=== PATIENT | male | born 1980 | race Two or more races ===

== ENCOUNTER → 2017-08-23 | Outpatient (CLI) | payer OTHER ==
[~2017-08-23] MED LIST: LIDOCAINE 1% 300 MG/30 ML SDV ONE
== END ==
LOC: FIMAGING 09:47
PROVIDERS: ATTEND Internal Medicine Hematology & Oncology
PROC: 0G9K3ZX Drainage of Thyroid Gland, Percutaneous Approach, Diagnostic (ICD-10-PCS; principal; 2017-08-23)
DX: C73 Malignant neoplasm of thyroid gland (principal)

== ENCOUNTER 2017-09-16 08:02 | Observation (INO) | payer BC, OTHER ==
[2017-09-16] MEDS ORDERED: ceFAZolin 2 GM/SWFI 2 GM/20 ML SYR IVP ONE ×2 (08:15→08:30)
[2017-09-16] MEDS ORDERED: LR 1,000 ML IV ONE (08:17)
[2017-09-16] MEDS ORDERED: THROMBIN (BOVINE) 5,000 UNIT VIAL TP ONE (09:44)
[2017-09-16] MEDS ORDERED: BUPIVACAINE/EPI 0.5% 30 ML SDV ONE (09:44)
[2017-09-16] MEDS ORDERED: PROPOFOL/EMULSION 500 MG/50 ML BOTTLE IV ONE ×2 (09:51→10:57)
[2017-09-16] MEDS ORDERED: fentaNYL 100 MCG/2 ML INJ ONE ×5 (09:51→13:03)
[2017-09-16] MEDS ORDERED: MIDAZOLAM 2 MG/2 ML VIAL ONE (09:51)
[2017-09-16] MEDS ORDERED: MEPERIDINE 25 MG/ML SYR IVP PRN (10:17)
[2017-09-16] MEDS ORDERED: LR 500 ML IV PRN (10:17)
[2017-09-16] MEDS ORDERED: NALOXONE HCL 0.4 MG/ML INJ IVP PRN (10:17)
[2017-09-16] MEDS ORDERED: PROMETHAZINE HCL 25 MG/ML INJ IVP PRN (10:17)
[2017-09-16] MEDS ORDERED: ONDANSETRON 4 MG/2 ML VIAL IVP PRN ×2 (10:17→12:34)
[2017-09-16] MEDS ORDERED: ALBUTEROL 3 ML DEYVIAL IH PRN (10:17)
[2017-09-16] MEDS ORDERED: DEXAMETHASONE 4 MG/ML VIAL IVP PRN (10:17)
[2017-09-16] MEDS ORDERED: METOCLOPRAMIDE 10 MG/2 ML VIAL IVP PRN (10:17)
[2017-09-16] MEDS ORDERED: DIAZEPAM 5 MG/ML 1 ML SYR IVP PRN (10:17)
--- NOTE | 2017-09-16 10:17 | PDANEPAE ---
ANE Past Medical History - Cardiovascular History Hx Hypertension: No Hx Arrhythmias: No Hx Chest Pain: No Hx Coronary Artery / Peripheral Vascular Disease: No Hx CHF / Valvular Disease: No Hx Palpitations: No - Pulmonary History Hx COPD: No Hx Asthma/Reactive Airway Disease: No Hx Recent Upper Respiratory Infection: No Hx Oxygen in Use at Home: No Hx Sleep Apnea: No Sleep Apnea Screening Result - Last Documented: Negative - Neurologic History Hx Cerebrovascular Accident: No Hx Seizures: No Hx Dementia: No - Endocrine History Hx Diabetes: Yes Endocrine History Comment: thyroid mass currently. 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 egd ANE Review of Systems Review of Systems: - Exercise capacity METS (RN): 4 METS ANE Patient History - Allergies Allergies/Adverse Reactions: No Known Allergies Allergy (Unverified 09/11/17 10:28) - Home Medications Home Medications: Acetaminophen [Tylenol ES 500 mg (*)] 500 mg PO DAILY PRN 09/11/17 [Last Taken Unknown] Levothyroxine [Synthroid 100 mcg (*)] 100 mcg PO DAILY06 09/11/17 [Last Taken Unknown] - NPO status NPO Since - Liquids (Date): 09/15/17 NPO Since - Solids (Date): 09/15/17 - Smoking Hx Smoking Status: Current some day smoker - Family Anes Hx Family Hx Anesthesia Complications: none ANE Labs/Vital Signs - Vital Signs Blood Pressure: 123/98 Heart Rate: 77 Respiratory Rate: 16 O2 Sat (%): 98 Height: 165 cm Weight: 83.8 kg ANE Physical Exam - Airway Neck exam: FROM Mallampati Score: Class 1 Mouth exam: normal dental/mouth exam - Pulmonary Pulmonary: no respiratory distress, no rales or rhonchi, clear to auscultation - Cardiovascular Cardiovascular: regular rate and rhythym, no murmur, rub, or gallop - ASA Status ASA Status: II ANE Anesthesia Plan Anesthesia Plan: general endotracheal anesthesia
[2017-09-16] MEDS ORDERED: RANITIDINE 50 MG/2 ML VIAL ONE (10:19)
[2017-09-16] MEDS ORDERED: METOCLOPRAMIDE 10 MG/2 ML VIAL ONE (10:19)
[2017-09-16] MEDS ORDERED: ROCURONIUM 50 MG/5 ML VIAL ONE ×2 (10:19→11:20)
[2017-09-16] MEDS ORDERED: SUGAMMADEX SODIUM 200 MG/2 ML VIAL IVP ONE (10:19)
[2017-09-16] MEDS ORDERED: ONDANSETRON 4 MG/2 ML VIAL ONE (10:19)
[2017-09-16] MEDS ORDERED: DEXAMETHASONE 4 MG/ML VIAL ONE (10:19)
[2017-09-16] MEDS ORDERED: LIDOCAINE 2% 5 ML SDV ONE (10:19)
[2017-09-16] MEDS ORDERED: BUPIVACAINE 0.25% 30 ML SDV ONE (11:37)
[2017-09-16] MEDS ORDERED: ESMOLOL HCL 100 MG/10 ML VIAL IV ONE (12:03)
--- NOTE | 2017-09-16 12:30 | PDHPUP ---
History & Physical Update H&P update statement: This history and physical update is based on an assessment of the patient which was completed after admission or registration (within 24 hours), but prior to the surgery/procedure. H&P update: H&P reviewed & patient examined, no change in patient's condition since H&P completed
--- NOTE | 2017-09-16 12:32 | POSTOPPROG ---
Post Op Note Date of Operation: 09/16/17 Surgeon: Reinier Mark Wool Dyer: Anayeli Bush Anesthesiologist: Feli Roberto Anesthesia: GET(General Endotracheal) Pre-op Diagnosis: papillary thyroid CA (right lobe) Post-op Diagnosis: same Procedure: total thyroidectomy with LN bx Findings: R thyroid nodule +papillar CA on frozen section, adhernent to trachea Inf/Abcess present in the surg proc area at time of surgery?: No EBL: Minimal Complications: none Specimen(s): to pathology, R and L thyroid and LN bx
[2017-09-16] MEDS ORDERED: HYDROmorphONE/DILAUDID 1 MG/ML INJ IVP PRN (12:34)
[2017-09-16] MEDS ORDERED: HYDROmorphone HCL/NS 0.5 MG/ML SYR IVP PRN (12:37)
[2017-09-16] MEDS: fentaNYL 100 MCG/2 ML INJ IVP PRN ×3 (13:05→13:31)
[2017-09-16] MEDS ORDERED: OXYCODONE/APAP 5/325 TAB ONE (13:48)
[2017-09-16] MEDS: OXYCODONE/APAP 5/325 TAB PO PRN ×2 (13:48→21:13)
[2017-09-16 14:36] VITALS: RESP 16
--- NOTE | 2017-09-16 20:18 | GOP ---
[f rep st] OPERATIVE REPORT DATE OF OPERATION: SURGEON: Reinier Mark MD VIDEO NETWORK ENGINEER: Anayeli Bush, SHARON. ANESTHESIOLOGIST: Lupe Roberto MD. PREOPERATIVE DIAGNOSIS: Papillary carcinoma of thyroid. POSTOPERATIVE DIAGNOSIS: Papillary carcinoma of thyroid. PROCEDURE PERFORMED: Total thyroidectomy. FINDINGS: The patient was found to have papillary cancer in the right lobe of the thyroid. His thyr oid was thickened and enlarged on both sides. There was no significant adenopathy in the central com partment of the neck. DESCRIPTION OF PROCEDURE: The patient was taken to the operating room, where he received satisfactor y general endotracheal anesthesia by Dr. Roberto. He was placed in supine position, prepped and drape d in the usual sterile fashion with the neck extended. A low collar incision was made and carried th rough the platysma, cutaneous platysmal flaps developed to the thyroid cartilage and to the sternal n otch. Strap muscles in the midline. The right lobe of the thyroid was then mobilized. Ca reful dissection was done along the capsule. The parathyroid glands were identified. They were diss ected off the thyroid capsule, in attempt to preserve their blood supply. The recurrent laryngeal ne rve was identified and after the anatomy was well delineated, the upper pole vessels were divided wit h the Harmonic Scalpel so that the thyroid body could be retracted medially. It was then dissected o ff the anterior trachea. The middle thyroid vein was divided with the Harmonic scalpel as was the in ferior thyroid artery, all with care to avoid injury to the recurrent laryngeal nerve and sparing the blood supply to the parathyroid glands. The gland was rotated medially and dissected off the anteri or trachea. It was then divided at the isthmus. The specimen was sent to Pathology, and the frozen section confirmed that he had papillary cancer in that lobe. The left lobe was then mobilized in a similar manner, identifying the parathyroid glands and sparing them from injury along with the recurrent laryngeal nerve. A small portion of thyroid was left in pl santos to protect those organs on that side. The superior pole was mobilized and divided with the Harmo feliz Scalpel and the left lobe was freed up off the anterior trachea and removed, and sent to Patholog y as well. Hemostasis was carefully obtained. The wound was irrigated. Some topical thrombin was p laced in the surgical bed. Strap muscles reapproximated with a running 3-0 Vicryl suture. The platy sma was closed with a running 3-0 Vicryl suture. The superficial layers were infiltrated with 0.5% M arcaine. The skin was closed with 4-0 Monocryl subcuticular stitch. He tolerated the procedure well, was taken to the recovery room in good condition. There were no com plications. /[id number]/MODL
[2017-09-16] MEDS: DOCUSATE SODIUM 100 MG CAP PO SCH (21:13)
[2017-09-16] MEDS: IBUPROFEN 600 MG TAB PO PRN (21:14)
--- NOTE | 2017-09-16 21:25 | POSTANESTH ---
Post Anesthetic Evaluation Cardiovascular Status: Normal, Stable Respiratory Status: Normal, Stable Level of Consciousness/Mental Status: Moderately Sleepy Pain Control: Adequate, Prn Tx Ordered Nausea/Vomiting Control: Adequate, Prn Tx Ordered Complications Possibly Related to Anesthesia: None Noted
[2017-09-17] MEDS: IBUPROFEN 600 MG TAB PO PRN (05:05)
[2017-09-17] MEDS ORDERED: LEVOTHYROXINE 100 MCG TAB PO SCH (06:00)
[2017-09-17 07:16] VITALS: BP 119/74; PULSE 97; TEMP 97.9; O2SAT 94
[2017-09-17] MEDS: DOCUSATE SODIUM 100 MG CAP PO SCH (08:00)
--- NOTE | 2017-09-17 10:48 | ASDISCHSUM ---
Discharge Information Plan Status:Home with No Needs Medically Cleared to Leave: Discharge Date: CM D/C Disposition:Home, Routine, Self-Care ADT D/C Disposition:Home, Routine, Self-Care Projected Discharge Date: Transportation at D/C:Family Discharge Delay Reason: Follow-Up Date: Discharge Slot: Final Diagnosis: Placement Information Patient Contact Information Contact Name:JENIFERWILTONCHRIS STEIN Relationship: Address:[facility] Work Phone: City:[place] Alternate Phone: [facility]/Zip Code:[place] [address] Email: Financial Information Financial Class:HMO and PPO Plans Primary Plan Desc: OUT OF STATE PPO Primary Plan Number:[id number] Secondary Plan Desc: Secondary Plan Number: Assessment Information [facility] CM Progress Note CM Note CM Note Notes: Dc order received. Anticipate dc home independently. CM available if needs/changes. Date Signed: 09/17/2017 10:47 AM Electronically Signed By:Torie Dale RN Intervention Information
[2017-09-18] MEDS ORDERED: ENOXAPARIN 40 MG/0.4 ML SYR SC SCH (09:00)
== END 2017-09-17 11:50 | disposition home or self-care (01) ==
LOC: F3E 08:02
PROVIDERS: ADMIT Surgery; ATTEND Surgery
PROC: 0GTK0ZZ Resection of Thyroid Gland, Open Approach (ICD-10-PCS; principal; 2017-09-16 09:30)
DX: C73 Malignant neoplasm of thyroid gland (principal); Z87.891 Personal history of nicotine dependence
CPT/HCPCS: 60240; G0378; J0690; J1100; J2250; J2270; J2405; J2704; J2765; J2780; J3010

== ENCOUNTER → 2017-10-25 | Outpatient (CLI) | payer BC, MEDICAID | LOC: FIMAGING 10:55 | DX: R10.9 Unspecified abdominal pain (principal) | CPT/HCPCS: A9537 ==

== ENCOUNTER → 2017-12-31 | Outpatient (CLI) | payer BC, MEDICAID | LOC: BMCIMAGING 13:13 | DX: R07.81 Pleurodynia (principal) | CPT/HCPCS: 71101-PO ==

== ENCOUNTER → 2018-07-07 | Outpatient (CLI) | payer BC, MEDICAID | LOC: FIMAGING 08:53 | PROVIDERS: ATTEND Internal Medicine Hematology & Oncology | DX: R93.7 Abnormal findings on diagnostic imaging of other parts of musculoskeletal system (principal); Z85.850 Personal history of malignant neoplasm of thyroid | CPT/HCPCS: 78306; A9503 ==

== ENCOUNTER → 2018-09-30 | Outpatient (CLI) | payer BC, MEDICAID | LOC: FIMAGING 09:21 | PROVIDERS: ATTEND Internal Medicine Hematology & Oncology | DX: C73 Malignant neoplasm of thyroid gland (principal); R93.7 Abnormal findings on diagnostic imaging of other parts of musculoskeletal system; E89.0 Postprocedural hypothyroidism | CPT/HCPCS: 76536; 78306; A9503 ==